=== PATIENT | male | born 2000 | race Caucasian/White ===

== ENCOUNTER 2020-04-24 00:17 | Emergency (ER) | payer BC ==
--- NOTE | 2020-04-24 02:20 | XR ---
EXAMINATION TYPE: XR thoracic spine complete DATE OF EXAM: 04/24/2020 COMPARISON: NONE HISTORY: Back pain TECHNIQUE: 4 views FINDINGS: Thoracic vertebra have fairly normal spacing and alignment. Posterior elements are intact. There is no paraspinal mass. IMPRESSION: Normal thoracic spine exam. No fracture.
--- NOTE | 2020-04-24 02:47 | ED ---
General Adult HPI - General Chief complaint: Back Pain/Injury Stated complaint: Back pain Time Seen by Provider: 04/24/20 00:58 Source: patient, family, RN notes reviewed, old records reviewed Mode of arrival: ambulatory Limitations: no limitations - History of Present Illness Initial comments: 19-year-old male patient presents to ED for chief complaint of in her thoracic back pain. 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 Reports that last 2 days she has been having muscle tightness on his bilateral parathoracic region. Reports is worse with range of motion lifting. Denies any paresthesias, denies any loss of bowel or bladder control, denies any lower extremity weakness. Denies any falls or trauma. Systemic: Pt denies fatigue, fever/chills, rash. Pt denies weakness, night sweats, weight loss. Neuro: Pt denies headache, visual disturbances, syncope or pre-syncope. HEENT: Pt denies ocular discharge or irritation, otalgia, rhinorrhea, pharyngitis or notable lymphadenopathy. Cardiopulmonary: Pt denies chest pain, SOB, heart palpitations, dyspnea on exertion. Abdominal/GI: Pt denies abdominal pain, n/v/d. : Pt denies dysuria, burning w/ urination, frequency/urgency. Denies new onset urinary or bowel incontinence. Neuro: Pt denies new onset weakness, paresthesias. - Related Data Allergies Allergy/AdvReac Type Severity Reaction Status Date / Time No Known Allergies Allergy Verified 04/24/20 00:36 Review of Systems ROS Statement: Those systems with pertinent positive or pertinent negative responses have been documented in the HPI. ROS Other: All systems not noted in ROS Statement are negative. Past Medical History Past Medical History: Asthma Additional Past Medical History / Comment(s): heart murmur History of Any Multi-Drug Resistant Organisms: None Reported Past Surgical History: No Surgical Hx Reported Past Psychological History: No Psychological Hx Reported Smoking Status: Never smoker Past Alcohol Use History: None Reported Past Drug Use History: None Reported General Exam - General Exam Comments Initial Comments: Constitutional: NAD, AOX3, Pt has pleasant affect. HEENT: NC/AT, trachea midline, neck supple, no lymphadenopathy. Posterior pharynx non erythematous, without exudates. External ears appear normal, without discharge. Mucous membranes moist. Eyes PERRLA, EOM intact. There is no scleral icterus. No pallor noted. Cardiopulmonary: RRR, no murmurs, rubs or gallops, no JVD noted. Lungs CTAB in anterior and posterior mello. No peripheral edema. Abdominal exam: Abdomen soft and non-distended. Abdomen non-tender to palpation in all 4 quadrants. Bowel sounds active in LLQ. No hepatosplenomegaly. No ecchymosis Neuro: CN II-XII grossly intact. No nuchal rigidity. No raccon eyes, no orellana sign, no hemotympanum. No cervical spinal tenderness. MSK: Bilateral mid parathoracic region is mildly tender to palpation. No midline tenderness. Reproducible with range of motion. No skin changes. 5 out of 5 strength psoas quadriceps muscles. Heel to toe walking is intact. Distal pulses are intact and equal. Limitations: no limitations Course Vital Signs 04/24/20 04/24/20 00:33 03:08 Temperature 98.7 F 98.4 F Pulse Rate 64 59 L Respiratory 16 18 Rate Blood Pressure 131/78 144/76 O2 Sat by Pulse 100 97 Oximetry Medical Decision Making - Medical Decision Making 19-year-old male patient presents to ED for chief complaint of in her thoracic back pain. 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 Reports that last 2 days she has been having muscle tightness on his bilateral parathoracic region. Reports is worse with range of motion lifting. Denies any paresthesias, denies any loss of bowel or bladder control, denies any lower extremity weakness. Denies any falls or trauma. Pt VSS, afebrile. Physical exam displayed: Bilateral mid parathoracic region is mildly tender to palpation. No midline tenderness. Reproducible with range of motion. No skin changes. 5 out of 5 strength psoas quadriceps muscles. Heel to toe walking is intact. Distal pulses are intact and equal. Plain film negative. Patient presentation of physical exam is consistent with muscle skeletal strain. Patient was advised to avoid strenuous lifting activities. Will follow up with primary care provider and return precautions are discussed. ase dscussed with Dr. Murphy. Disposition Clinical Impression: Strain of thoracic back region Disposition: HOME SELF-CARE Condition: Stable Instructions (If sedation given, give patient instructions): Thoracic Back Strain (ED) Additional Instructions: Follow-up with primary care provider tomorrow. Return to ER if condition worsens. Is patient prescribed a controlled substance at d/c from ED?: No Referrals: None,Stated [Primary Care Provider] - 1-2 days Kathy Amos MD [REFERRING] - 1-2 days
[2020-04-24 03:10] VITALS: BP 144/76; PULSE 59; RESP 18; TEMP 98.4
== END 2020-04-24 03:09 | disposition home or self-care (01) ==
LOC: EC 00:17
DX: S29.012A Strain of muscle and tendon of back wall of thorax, initial encounter (principal); X50.0XXA Overexertion from strenuous movement or load, initial encounter; Y93.89 Activity, other specified; Y92.69 Other specified industrial and construction area as the place of occurrence of the external cause
CPT/HCPCS: 72072; 99283

== ENCOUNTER 2020-08-28 00:24 | Emergency (ER) | payer BC, OTHER ==
[2020-08-28 00:30] VITALS: BP 130/69; PULSE 90; RESP 18; TEMP 98.3
--- NOTE | 2020-08-28 01:06 | XR ---
EXAM: XR Right Hand Complete, 3 or More Views CLINICAL HISTORY: ITS.REASON XR Reason: right hand injury, pain swelling TECHNIQUE: Frontal, lateral and oblique views of the right hand. COMPARISON: No relevant prior studies available. FINDINGS: Bones/joints: Unremarkable. No acute fracture. No dislocation. Soft tissues: Unremarkable. No radiopaque foreign body. IMPRESSION: Normal right hand x-rays.
--- NOTE | 2020-08-28 01:10 | ED ---
Upper Extremity HPI - General Chief Complaint: Extremity Injury, Upper Stated Complaint: RT hand injury Time Seen by Provider: 08/28/20 00:32 Source: patient, RN notes reviewed, old records reviewed Mode of arrival: ambulatory Limitations: no limitations - History of Present Illness Initial Comments: patient is a 20-year-old male presents with right hand pain and swelling after hitting it on a metal piece of piping and hardware while he was at work on . Patient reports he has some pain with range of motion of his fourth and fifth fingers. He denies other areas of injury. Reports that he does have range of motion of the fingers just with pain with flexion. He reports normal sensation distally. He is right-handed. - Related Data Previous Rx's Medication Instructions Recorded Ibuprofen [Motrin] 600 mg PO Q6HR PRN #20 tab 08/28/20 Allergies Allergy/AdvReac Type Severity Reaction Status Date / Time No Known Allergies Allergy Verified 08/28/20 00:29 Review of Systems ROS Statement: Those systems with pertinent positive or pertinent negative responses have been documented in the HPI. ROS Other: All systems not noted in ROS Statement are negative. Past Medical History Past Medical History: Asthma Additional Past Medical History / Comment(s): heart murmur History of Any Multi-Drug Resistant Organisms: None Reported Past Surgical History: No Surgical Hx Reported Past Psychological History: Anxiety, Depression Smoking Status: Never smoker Past Alcohol Use History: None Reported Past Drug Use History: None Reported General Exam - General Exam Comments Initial Comments: 20-year-old male. No distress Limitations: no limitations General appearance: alert, in no apparent distress Head exam: Present: atraumatic, normocephalic, normal inspection Eye exam: Present: normal appearance, PERRL, EOMI. Absent: scleral icterus, conjunctival injection, periorbital swelling ENT exam: Present: normal exam, mucous membranes moist Neck exam: Present: normal inspection. Absent: tenderness, meningismus, lymphadenopathy Respiratory exam: Present: normal lung sounds bilaterally. Absent: respiratory distress, wheezes, rales, rhonchi, stridor Cardiovascular Exam: Present: regular rate, normal rhythm, normal heart sounds. Absent: systolic murmur, diastolic murmur, rubs, gallop, clicks GI/Abdominal exam: Present: soft, normal bowel sounds. Absent: distended, tenderness, guarding, rebound, rigid Extremities exam: Present: normal inspection, full ROM, normal capillary refill. Absent: tenderness, pedal edema, joint swelling, calf tenderness Right Upper Arm exam: Present: normal inspection, full ROM Elbow exam: Present: normal inspection, full ROM Forearm Wrist exam: Present: normal inspection, full ROM Hand Wrist exam: Present: full ROM, swelling (fourth and fifth metacarpals). Absent: normal inspection Neuro motor exam: Present: wrist extension intact, thumb opposition intact, thumb IP flexion intact, thumb adduction intact, fingers 2-5 abduction intact Vascular: Present: normal capillary refill Back exam: Present: normal inspection Neurological exam: Present: alert, oriented X3, CN II-XII intact Psychiatric exam: Present: normal affect, normal mood Skin exam: Present: warm, dry, intact, normal color. Absent: rash Course Vital Signs 08/28/20 00:26 Temperature 98.3 F Pulse Rate 90 Respiratory 18 Rate Blood Pressure 130/69 O2 Sat by Pulse 99 Oximetry Medical Decision Making - Medical Decision Making 20-year-old male presents the ER today for evaluation for right hand pain and swelling after hitting it on . Assessment swelling. He is full range of motion noted. Normal cap refill. X-ray of the hand shows no fracture. Assessment sprain and contusion. Given an Juan Antonio wrap and advised follow-up with PCP and anti-inflammatory medicine for pain. - Radiology Data Radiology results: report reviewed normal right hand x-ray. Disposition Clinical Impression: Hand contusion Disposition: HOME SELF-CARE Condition: Good Instructions (If sedation given, give patient instructions): Hand Sprain (ED) Additional Instructions: Please use medication as discussed. Rest, ice, and elevate the hand. Please follow up with family doctor if symptoms have not improved over the next two days. Please return to the emergency room if your symptoms increase or worsen or for any other concerns. Prescriptions: Ibuprofen [Motrin] 600 mg PO Q6HR PRN #20 tab PRN Reason: Pain Is patient prescribed a controlled substance at d/c from ED?: No Referrals: None,Stated [Primary Care Provider] - 1-2 days Time of Disposition: 01:09
== END 2020-08-28 01:18 | disposition home or self-care (01) ==
LOC: EC 00:24
DX: S60.221A Contusion of right hand, initial encounter (principal); M79.89 Other specified soft tissue disorders; W22.8XXA Striking against or struck by other objects, initial encounter; Y99.0 Civilian activity done for income or pay
CPT/HCPCS: 99284

== ENCOUNTER 2021-05-22 03:10 | Emergency (ER) | payer BC, OTHER ==
--- NOTE | 2021-05-22 03:13 | ED ---
Chest Pain HPI - General Stated Complaint: Shoulder Pain Time Seen by Provider: 05/22/21 03:12 Source: RN notes reviewed, old records reviewed Mode of arrival: ambulatory Limitations: no limitations - History of Present Illness Initial Comments: This is a 21-year-old male presents today for evaluation of pain left shoulder pain severe worse with range of motion. Symptoms for a week plus no pain appears to come and go and woke him up tonight from sleep. Patient denies any chest pain shortness of breath no recent fever cough or congestion. No traumatic injury noted. The pain does improve with heat does improve with ice. Complaint: other (Left shoulder pain) -: days(s) Onset: awoke with symptoms Pain Location: other (Left shoulder) Pain Radiation: LUE Severity: mild Severity scale (1-10): 2 Quality: tightness Consistency: intermittent Improves With: nothing Worsens With: nothing Context: other (None) Anginal Symptoms: other (none) Other Symptoms: other (none) Treatments Prior to Arrival: none - Related Data Previous Rx's Medication Instructions Recorded Ibuprofen [Motrin] 600 mg PO Q6HR PRN #20 tab 08/28/20 Allergies Allergy/AdvReac Type Severity Reaction Status Date / Time No Known Allergies Allergy Verified 05/22/21 03:24 Review of Systems ROS Statement: Those systems with pertinent positive or pertinent negative responses have been documented in the HPI. ROS Other: All systems not noted in ROS Statement are negative. EKG Findings - EKG Comments: EKG Findings:: EKG shows Past Medical History Past Medical History: Asthma Additional Past Medical History / Comment(s): heart murmur History of Any Multi-Drug Resistant Organisms: None Reported Past Surgical History: No Surgical Hx Reported Past Psychological History: Anxiety, Depression Smoking Status: Never smoker Past Alcohol Use History: None Reported Past Drug Use History: None Reported General Exam General appearance: alert, in no apparent distress Head exam: Present: atraumatic, normocephalic, normal inspection Eye exam: Present: normal appearance, PERRL, EOMI. Absent: scleral icterus, c onjunctival injection, periorbital swelling ENT exam: Present: normal exam, mucous membranes moist Neck exam: Present: normal inspection. Absent: tenderness, meningismus, lymphadenopathy Respiratory exam: Present: normal lung sounds bilaterally. Absent: respiratory distress, wheezes, rales, rhonchi, stridor Cardiovascular Exam: Present: regular rate, normal rhythm, normal heart sounds. Absent: systolic murmur, diastolic murmur, rubs, gallop, clicks GI/Abdominal exam: Present: soft, normal bowel sounds. Absent: distended, tenderness, guarding, rebound, rigid Extremities exam: Present: normal inspection, full ROM, normal capillary refill, other (Left shoulder pain and tenderness increased with range of motion). Absent: tenderness, pedal edema, joint swelling, calf tenderness Back exam: Present: normal inspection Neurological exam: Present: alert, oriented X3, CN II-XII intact Psychiatric exam: Present: normal affect, normal mood Skin exam: Present: warm, dry, intact, normal color. Absent: rash Course Vital Signs 05/22/21 05/22/21 03:20 04:33 Temperature 98.9 F 97.9 F Pulse Rate 94 87 Respiratory 20 15 Rate Blood Pressure 126/74 136/91 O2 Sat by Pulse 99 99 Oximetry - Reevaluation(s) Reevaluation #1: 05/22/21 Medical record is reviewed Patient symptoms are improved here in the emergency department Patient informed of results and questions answered Patient is in no acute distress Chest Pain MDM - MDM 21 male to the ER for evaluation shoulder pain no chest pain, shoulder pain is improved here in the ER x-rays normal patient can be discharged home Disposition Clinical Impression: Left shoulder pain, Strain of shoulder Disposition: HOME SELF-CARE Condition: Good Instructions (If sedation given, give patient instructions): Shoulder Sprain (ED) Is patient prescribed a controlled substance at d/c from ED?: No Referrals: Jay Madden DO [Primary Care Provider] - 1-2 days
[2021-05-22] MEDS ORDERED: KETOROLAC 15 MG/ML 1 ML VIAL IM STA (03:46)
[2021-05-22] MEDS ORDERED: ACETAMINOPHEN TAB 500 MG TAB PO STA (03:46)
--- NOTE | 2021-05-22 04:14 | XR ---
EXAMINATION TYPE: XR chest 1V DATE OF EXAM: 05/22/2021 COMPARISON: NONE HISTORY: Shoulder pain TECHNIQUE: Single view FINDINGS: Heart and mediastinum are normal. Lungs are clear. Diaphragm is normal. Bony thorax appears normal. IMPRESSION: Normal chest. No pneumothorax.
--- NOTE | 2021-05-22 04:15 | XR ---
EXAMINATION TYPE: XR shoulder complete LT DATE OF EXAM: 05/22/2021 COMPARISON: NONE HISTORY: Shoulder pain TECHNIQUE: 3 views FINDINGS: There is no fracture nor dislocation. Joint spaces are normal. There are no pathologic calc ifications. IMPRESSION: Negative left shoulder exam. No fracture.
[2021-05-22 04:45] VITALS: BP 136/91; PULSE 87; RESP 15; TEMP 97.9
== END 2021-05-22 04:35 | disposition home or self-care (01) ==
LOC: EC 03:10
DX: S46.912A Strain of unspecified muscle, fascia and tendon at shoulder and upper arm level, left arm, initial encounter (principal); J45.909 Unspecified asthma, uncomplicated; Z79.1 Long term (current) use of non-steroidal anti-inflammatories (NSAID); X58.XXXA Exposure to other specified factors, initial encounter
CPT/HCPCS: 71045; 96372; 99283

== ENCOUNTER 2022-03-06 02:23 | Emergency (ER) | payer OTHER ==
[2022-03-06 02:28] VITALS: BP 136/80; PULSE 71; RESP 18; TEMP 98.6
--- NOTE | 2022-03-06 06:25 | ED ---
Lower Extremity Injury HPI - General Chief Complaint: Extremity Injury, Lower Stated Complaint: LT knee pain Time Seen by Provider: 03/06/22 06:06 Source: patient, RN notes reviewed Mode of arrival: ambulatory Limitations: no limitations - History of Present Illness Initial Comments: This a 29-year-old male presents emergency Department with chief complaint left knee pain. Patient states couple days ago he tripped, fell onto his left knee. Patient states been having some discomfort with ambulation. States was no twisting motion. Denies any pain above or below the left knee. No paresthesias. Denies any prior surgeries denies head injury no other complaints. - Related Data Previous Rx's Medication Instructions Recorded Ibuprofen [Motrin] 600 mg PO Q6HR PRN #20 tab 08/28/20 Ibuprofen [Motrin] 600 mg PO Q8HR PRN #20 tab 03/06/22 Allergies Allergy/AdvReac Type Severity Reaction Status Date / Time No Known Allergies Allergy Verified 03/06/22 02:28 Review of Systems ROS Statement: Those systems with pertinent positive or pertinent negative responses have been documented in the HPI. ROS Other: All systems not noted in ROS Statement are negative. Past Medical History Past Medical History: Asthma Additional Past Medical History / Comment(s): heart murmur History of Any Multi-Drug Resistant Organisms: None Reported Past Surgical History: No Surgical Hx Reported Past Psychological History: Anxiety, Depression Smoking Status: Never smoker Past Alcohol Use History: Rare Past Drug Use History: None Reported General Exam Limitations: no limitations General appearance: alert, in no apparent distress Head exam: Present: atraumatic, normocephalic, normal inspection Eye exam: Present: normal appearance, PERRL, EOMI. Absent: scleral icterus, conjunctival injection, periorbital swelling Respiratory exam: Present: normal lung sounds bilaterally. Absent: respiratory distress, wheezes, rales, rhonchi, stridor Cardiovascular Exam: Present: regular rate, normal rhythm, normal heart sounds. Absent: systolic murmur, diastolic murmur, rubs, gallop, clicks Extremities exam: Present: other (Left knee there is mild discomfort with palpation of the anterior surface, no laxity noted no significant swelling ecchymosis or erythema leg is neurovascularly intact there is no tenderness above or below the left knee.) Neurological exam: Present: alert, oriented X3 Skin exam: Present: warm, dry, intact, normal color. Absent: rash Course Vital Signs 03/06/22 02:26 Temperature 98.6 F Pulse Rate 71 Respiratory 18 Rate Blood Pressure 136/80 O2 Sat by Pulse 97 Oximetry Medical Decision Making - Medical Decision Making 21-year-old male present emergency from chief complaint left knee pain. X-rays negative for acute fracture. Patient has left knee contusion will be discharged in stable condition return parameters discussed. Disposition Clinical Impression: Contusion of left knee Disposition: HOME SELF-CARE Condition: Stable Instructions (If sedation given, give patient instructions): Knee Sprain (ED) Additional Instructions: Please return to the Emergency Department if symptoms worsen or any other concerns. Prescriptions: Ibuprofen [Motrin] 600 mg PO Q8HR PRN #20 tab PRN Reason: Pain Is patient prescribed a controlled substance at d/c from ED?: No Referrals: Jay Madden DO [Primary Care Provider] - 1-2 days Time of Disposition: 06:30
--- NOTE | 2022-03-06 06:32 | XR ---
EXAMINATION TYPE: XR knee complete LT DATE OF EXAM: 03/06/2022 CLINICAL HISTORY: Recent fall injury with pain. TECHNIQUE: Three views of the left knee are obtained. COMPARISON: None. FINDINGS: There is no acute fracture/dislocation evident in left knee. Mild narrowing medial tibiofe moral compartment. The overlying soft tissue appears unremarkable. IMPRESSION: There is no acute fracture or dislocation in the left knee.
== END 2022-03-06 06:40 | disposition home or self-care (01) ==
LOC: EC 02:23
DX: J45.909 Unspecified asthma, uncomplicated (principal); S80.02XA Contusion of left knee, initial encounter; W01.0XXA Fall on same level from slipping, tripping and stumbling without subsequent striking against object, initial encounter

== ENCOUNTER 2023-03-20 19:50 | Emergency (ER) | payer OTHER ==
--- NOTE | 2023-03-20 20:24 | ED ---
General Adult HPI - General Stated complaint: left hand injury Time Seen by Provider: 03/20/23 20:23 Source: RN notes reviewed - History of Present Illness Initial comments: Patient is a 22-year-old male presents to the emergency department for left hand pain. Patient accidentally hit his hand on the bathroom sink 2 days ago. He has pain in his hand near his thumb that has not improved. He has not taken any medication yet - Related Data Previous Rx's Medication Instructions Recorded Ibuprofen [Motrin] 600 mg PO Q6HR PRN #20 tab 08/28/20 Ibuprofen [Motrin] 600 mg PO Q8HR PRN #20 tab 03/06/22 Ibuprofen [Motrin] 800 mg PO Q8HR PRN #30 tab 03/20/23 Allergies Allergy/AdvReac Type Severity Reaction Status Date / Time No Known Allergies Allergy Verified 03/20/23 20:25 Review of Systems ROS Statement: Those systems with pertinent positive or pertinent negative responses have been documented in the HPI. ROS Other: All systems not noted in ROS Statement are negative. Past Medical History Past Medical History: Asthma Additional Past Medical History / Comment(s): heart murmur History of Any Multi-Drug Resistant Organisms: None Reported Past Surgical History: No Surgical Hx Reported Past Psychological History: Anxiety, Depression Smoking Status: Never smoker Past Alcohol Use History: Rare Past Drug Use History: None Reported General Exam - General Exam Comments Initial Comments: Visual Physical Exam Vital signs reviewed General: Well-appearing, nontoxic, no acute distress. Head: Normocephalic, atraumatic Eyes: PERRLA, EOMI ENT: Airway patent Chest: Nonlabored breathing Skin: No visual rash, normal skin tone Neuro: Alert and oriented 3 Musculoskeletal: No gross abnormalities General appearance: alert, in no apparent distress Respiratory exam: Present: normal lung sounds bilaterally. Absent: respiratory distress, wheezes, rales, rhonchi, stridor Cardiovascular Exam: Present: regular rate, normal rhythm, normal heart sounds. Absent: systolic murmur, diastolic murmur, rubs, gallop, clicks Left Forearm Wrist exam: Present: normal inspection, full ROM, tenderness over anatomical snuff box, pain with axial thumb loading. Absent: tenderness, swelling Hand Wrist exam: Present: full ROM, tenderness, ecchymosis (along first to third metacarpal ). Absent: swelling, erythema Neuro motor exam: Present: wrist extension intact, thumb opposition intact, thumb IP flexion intact, thumb adduction intact, fingers 2-5 abduction intact Vascular: Present: normal capillary refill Neurological exam: Present: alert, oriented X3, CN II-XII intact Psychiatric exam: Present: normal affect, normal mood Course Vital Signs 03/20/23 20:23 Temperature 98.6 F Pulse Rate 97 Respiratory 20 Rate Blood Pressure 125/69 O2 Sat by Pulse 98 Oximetry Procedures - Orthopedic Splinting/Casting Injury #1 Upper Extremity Immobilizer: volar splint Medical Decision Making - Medical Decision Making Was pt. sent in by a medical professional or institution (CHRISSY Randall, INDUCTION MACHINE SETTER, urgent care, hospital, or long-term...) When possible be specific @ -No Did you speak to anyone other than the patient for history (EMS, parent, family, police, friend...)? What history was obtained from this source @ -No Did you review nursing and triage notes (agree or disagree)? Why? @ -I reviewed and agree with nursing and triage notes Were old charts reviewed (outside hosp., previous admission, EMS record, old EKG, old radiological studies, urgent care reports/EKG's, long-term records)? Report findings @ -No old charts were reviewed Differential Diagnosis (chest pain, altered mental status, abdominal pain women, abdominal pain men, vaginal bleeding, weakness, fever, dyspnea, syncope, headache, dizziness, GI bleed, back pain, seizure, CVA, palpatations, mental health)? @ -Fracture, dislocation, contusion, sprain EKG interpreted by me (3pts min.). @ -As above X-rays interpreted by me (1pt min.). @ -Yes, x-ray is negative for fracture CT interpreted by me (1pt min.). @ -None done U/S interpreted by me (1pt. min.). @ -None done What testing was considered but not performed or refused? (CT, X-rays, U/S, labs)? Why? @ -None What meds were considered but not given or refused? Why? @ -None Did you discuss the management of the patient with other professionals (professionals i.e. CHRISYS Randall, INDUCTION MACHINE SETTER, lab, RT, psych nurse, social work therapist, android ios developer, teacher, tourist information officer, case advocate)? Give summary @ -No Was smoking cessation discussed for >3mins.? @ -No Was critical care preformed (if so, how long)? @ -No Were there social determinants of health that impacted care today? How? (Homelessness, low income, unemployed, alcoholism, drug addiction, transportation, low edu. Level, literacy, decrease access to med. care, senior living, rehab)? @ -No Was there de-escalation of care discussed even if they declined (Discuss DNR or withdrawal of care, Hospice)? DNR status @ -No What co-morbidities impacted this encounter? (DM, HTN, Smoking, COPD, CAD, Cancer, CVA, ARF, Chemo, Hep., AIDS, mental health diagnosis, sleep apnea, morbid obesity)? @ -None Was patient admitted / discharged? Hospital course, mention meds given and route, prescriptions, significant lab abnormalities, going to OR and other pertinent info. @ -Discharged. Patient has bruising and tenderness to the lateral left hand. There is anatomical snuffbox tenderness. Patient has full range of motion he is neurovascularly intact. He was placed in volar splint. Cap refill < 2 seconds post splint. He is to follow-up with with [facility]. Undiagnosed new problem with uncertain prognosis? @ -No Drug Therapy requiring intensive monitoring for toxicity (Heparin, Nitro, Insulin, Cardizem)? @ -No] Were any procedures done? @ -yes splinting Diagnosis/symptom? @ -left hand injury Acute, or Chronic, or Acute on Chronic? @ acute Uncomplicated (without systemic symptoms) or Complicated (systemic symptoms)? @ -uncomplicated Side effects of treatment? @ -[No] Exacerbation, Progression, or Severe Exacerbation? @ -[No] Poses a threat to life or bodily function? How? (Chest pain, [place], [place], pneumonia, PE, COPD, DKA, ARF, appy, cholecystitis, CVA, Diverticulitis, Homicidal, Suicidal, threat to staff... and all critical care pts) @ -[No] Dr. Carroll is my attending Disposition Clinical Impression: Injury of left hand Disposition: HOME SELF-CARE Condition: Good Instructions (If sedation given, give patient instructions): Hand Fracture (ED) Additional Instructions: Keep splint clean and dry. Take medication as directed. Please follow-up with storage specialist in 1-2 days. Return to the emergency department if you experience new, concerning, or worsening symptoms. Prescriptions: Ibuprofen [Motrin] 800 mg PO Q8HR PRN #30 tab PRN Reason: Pain Is patient prescribed a controlled substance at d/c from ED?: No Referrals: Jay Madden DO [Primary Care Provider] - 1-2 days Juancho Kebede DO [Doctor of Osteopathic Medicine] - 1-2 days
[2023-03-20] MEDS ORDERED: IBUPROFEN 800 MG TAB PO STA (20:34)
--- NOTE | 2023-03-20 21:05 | XR ---
EXAMINATION TYPE: XR hand complete LT DATE OF EXAM: 03/20/2023 CLINICAL HISTORY: Pain and swelling after injury TECHNIQUE: Frontal, lateral and oblique images of the left hand are obtained. COMPARISON: None. FINDINGS: There is no acute fracture/dislocation evident in the left hand. The joint spaces in the l eft hand appear within normal limits. The overlying soft tissue appears unremarkable. IMPRESSION: There is no acute fracture or dislocation in the left hand.
[2023-03-20 22:36] VITALS: BP 125/57; PULSE 86; RESP 18; TEMP 97.1
== END 2023-03-20 22:42 | disposition home or self-care (01) ==
LOC: EC 19:50
DX: S69.92XA Unspecified injury of left wrist, hand and finger(s), initial encounter (principal); J45.909 Unspecified asthma, uncomplicated; Z86.59 Personal history of other mental and behavioral disorders; W22.8XXA Striking against or struck by other objects, initial encounter
CPT/HCPCS: 29125; 99283

== ENCOUNTER 2023-10-21 09:17 | Emergency (ER) | payer OTHER ==
--- NOTE | 2023-10-21 11:18 | XR ---
EXAMINATION TYPE: XR chest 2V DATE OF EXAM: 10/21/2023 10:10 AM CLINICAL INDICATION:Male, 23 years old with history of Cough; [facility] COMPARISON: 05/22/2021 TECHNIQUE: XR chest 2V. Frontal PA and lateral views of the chest. FINDINGS: Lines/Tubes: None. Heart/mediastinum: Cardiac silhouette is not enlarged. Mediastinum is not widened. Pulmonary vascularity: Not increased, Lungs/Pleura: Opacities suggesting mild bilateral perihilar infiltrates, left greater than right. No focal lung consolidation otherwise. No sizable pleural effusion or pneumothorax. Musculoskeletal: No acute osseous abnormality demonstrated in the limits of the exam. Other findings: None. IMPRESSION: Opacities suggesting mild bilateral perihilar infiltrates, left greater than right, suspicious for in fectious/inflammatory process. Follow-up as clinically warranted.
[2023-10-21] MEDS ORDERED: IPRATROPIUM-ALBUTEROL 3 ML NEB INHALATION STA (11:24)
[2023-10-21] MEDS ORDERED: guaiFENesin-Coden 100-10MG/5ML 10 ML CUP PO ONE (11:24)
[2023-10-21] MEDS ORDERED: DEXAMETHASONE SOD PHOSPHATE 10 MG/ML 1 ML VIAL IM STA (11:31)
--- NOTE | 2023-10-21 11:31 | ED ---
URI HPI - General Chief Complaint: Upper Respiratory Infection Stated Complaint: Cough Time Seen by Provider: 10/21/23 09:29 Source: patient, RN notes reviewed Mode of arrival: ambulatory Limitations: no limitations - History of Present Illness Initial Comments: This is a 23-year-old male who presents to the emergency department for coughing and congestion for 4 days. Describes this as a wet and productive cough. When he goes into coughing fit, states that he starts to get shortness of breath. Denies any chest pain. Denies any fevers, chills, or sick contacts. He does report a history of asthma. He is concerned that this may be more severe than prior URIs he has had in the past. He is taking [id number] cold medication with no relief in symptoms. MD Complaint: cough, nasal congestion Onset/Timin - Related Data Previous Rx's Medication Instructions Recorded Ibuprofen [Motrin] 600 mg PO Q6HR PRN #20 tab 08/28/20 Ibuprofen [Motrin] 600 mg PO Q8HR PRN #20 tab 03/06/22 Ibuprofen [Motrin] 800 mg PO Q8HR PRN #30 tab 03/20/23 Azithromycin [Zithromax] 250 mg PO DIRECTED 5 Days #6 tab 10/21/23 Promethazine/Dextromethorphan 5 ml PO Q4-6H PRN #473 ml 10/21/23 [Promethazine-Dm Syrup] predniSONE 50 mg PO DAILY 5 Days #5 tab 10/21/23 Allergies Allergy/AdvReac Type Severity Reaction Status Date / Time No Known Allergies Allergy Verified 10/21/23 09:28 Review of Systems ROS Statement: Those systems with pertinent positive or pertinent negative responses have been documented in the HPI. ROS Other: All systems not noted in ROS Statement are negative. Past Medical History Past Medical History: Asthma Additional Past Medical History / Comment(s): heart murmur History of Any Multi-Drug Resistant Organisms: None Reported Past Surgical History: No Surgical Hx Reported Past Psychological History: Anxiety, Depression Smoking Status: Never smoker Past Alcohol Use History: Rare Past Drug Use History: None Reported General Exam Limitations: no limitations General appearance: alert, in no apparent distress Head exam: Present: atraumatic, normocephalic, normal inspection Respiratory exam: Present: normal lung sounds bilaterally. Absent: respiratory distress, wheezes, rales, rhonchi, stridor Cardiovascular Exam: Present: regular rate, normal rhythm, normal heart sounds. Absent: systolic murmur, diastolic murmur, rubs, gallop, clicks Neurological exam: Present: alert, oriented X3, CN II-XII intact Psychiatric exam: Present: normal affect, normal mood Skin exam: Present: warm, dry, intact, normal color. Absent: rash Course Vital Signs 10/21/23 10/21/23 10/21/23 09:26 09:38 11:43 Temperature 98.9 F Pulse Rate 110 H 110 H Respiratory 18 20 Rate Blood Pressure 132/78 O2 Sat by Pulse 96 Oximetry 10/21/23 10/21/23 11:51 11:55 Temperature 97.9 F Pulse Rate 114 H 101 H Respiratory 18 Rate Blood Pressure 136/86 O2 Sat by Pulse 99 Oximetry Medical Decision Making - Medical Decision Making This is a 23-year-old male who presents to the emergency department for coughing and congestion. Was pt. sent in by a medical professional or institution? @ -No Did you speak to anyone other than the patient for history? @ -No Did you review nursing and triage notes? @ -Yes, and I agree, it is accurate with regards to the patient's symptoms. Were old charts reviewed? @ -No Differential Diagnosis? @ -Differential Cough: Influenza, Covid, RSV, croup, allergic rhinitis, GERD, pneumonia, bronchitis, COPD, viral pharyngitis, streptococcal pharyngitis, this is not meant to be an all-inclusive list. EKG interpreted by me (3pts min.)? @ -Not obtained X-rays interpreted by me (1pt min.)? @ -Chest x-ray obtained. My interpretation identifies bilateral perihilar infiltrates. CT interpreted by me (1pt min.)? @ -Not obtained U/S interpreted by me (1pt. min.)? @ -Not obtained What testing was considered but not performed? (CT, X-rays, U/S, labs)? Why? @ -None What meds were considered but not given? Why? @ -None Did you discuss the management of the patient with other professionals? @ -No Did you reconcile home meds? @ -No Was smoking cessation discussed for >3mins.? @ -No Was critical care preformed (if so, how long)? @ -No Were there social determinants of health that impacted care today? How? (Homelessness, low income, unemployed, alcoholism, drug addiction, transportation, low edu. Level, literacy, decrease access to med. care, usp, rehab)? @ -No Was there de-escalation of care discussed even if they declined? (Discuss DNR or withdrawal of care, Hospice)? @ -No What co-morbidities impacted this encounter? (DM, HTN, Smoking, COPD, CAD, Cancer, CVA, Hep., AIDS, mental health diagnosis, sleep apnea, morbid obesity)? @ -Asthma Was patient admitted / discharged? @ -Discharged. Covid, influenza, and RSV testing were negative. Chest x-ray demonstrates mild bilateral perihilar infiltrates, left greater than right, suspicious for infectious/inflammatory process. Findings reviewed with the patient. She was given Robitussin-AC cough syrup and a DuoNeb breathing treatment, which he found helpful. We'll treat the patient for a possible pneumonia based on chest x-ray findings. Rx for azithromycin, prednisone, and promethazine DM cough syrup provided with dosing instructions reviewed. He is advised to follow up with his primary care provider for repeat chest x-rays to ensure clearance of infiltrates. Undiagnosed new problem with uncertain prognosis? @ -None Drug Therapy requiring intensive monitoring for toxicity (Heparin, Nitro, Insulin, Cardizem)? @ -None Were any procedures done? @ -None Diagnosis/symptom? @ -Pneumonia, cough Acute, or Chronic, or Acute on Chronic? @ -Acute Uncomplicated (without systemic symptoms) or Complicated (systemic symptoms)? @ -Uncomplicated Side effects of treatment? @ -None Exacerbation, Progression, or Severe Exacerbation] @ -Not applicable Poses a threat to life or bodily function? @ -No Return precautions reviewed in depth, the patient is instructed to return to the emergency department with any new, worsening, or concerning symptoms. Patient verbalized understanding. This case was discussed in detail with the attending ED physician, Dr. Cheema. Presentation, findings, and treatment plan discussed in detail as well. - Lab Data Lab Results 10/21/23 Range/Units 09:35 Influenza Type A (PCR) Not Detected (Not Detectd) Influenza Type B (PCR) Not Detected (Not Detectd) RSV (PCR) Not Detected (Not Detectd) SARS-CoV-2 (PCR) Not Detected (Not Detectd) - Radiology Data Radiology results: report reviewed, image reviewed Disposition Clinical Impression: Pneumonia, Cough Disposition: HOME SELF-CARE Instructions (If sedation given, give patient instructions): Upper Respiratory Infection (ED), Pneumonia (ED) Additional Instructions: Return to the emergency department with any new, worsening, or concerning symp toms. Take the antibiotic as prescribed for 5 days. Take the prednisone daily for 5 days. You can take the cough medication every 4-6 hours as needed. Follow up with your primary care provider in 1-2 days. Prescriptions: predniSONE 50 mg PO DAILY 5 Days #5 tab Promethazine/Dextromethorphan [Promethazine-Dm Syrup] 5 ml PO Q4-6H PRN #473 ml PRN Reason: Cough Azithromycin [Zithromax] 250 mg PO DIRECTED 5 Days #6 tab Is patient prescribed a controlled substance at d/c from ED?: No Referrals: Jay Madden DO [Primary Care Provider] - 1-2 days
[2023-10-21 12:17] VITALS: BP 136/86; PULSE 101; RESP 18; TEMP 97.9
== END 2023-10-21 11:57 | disposition home or self-care (01) ==
LOC: EC 09:17
DX: J18.9 Pneumonia, unspecified organism (principal); J45.909 Unspecified asthma, uncomplicated; Z86.59 Personal history of other mental and behavioral disorders; Z20.822 Contact with and (suspected) exposure to COVID-19
CPT/HCPCS: 94640; 87636; 71046; 99284; 96372; J1100